=== PATIENT | female | born 1985 | race Caucasian/White ===

== ENCOUNTER 2021-01-02 19:01 | Inpatient (IN) | payer MEDICAID ==
[2021-01-02] MEDS ORDERED: TERBUTALINE 1 MG/ML VIAL SQ PRN (19:55)
[2021-01-02] MEDS ORDERED: LIDOCAINE 0.5% (PF) 5 MG/ML (50 ML SDV) SQ PRN (19:55)
[2021-01-02] MEDS ORDERED: CARBOPROST TROMETHAMINE 250 MCG/ML 1 ML AMP IM PRN (19:55)
[2021-01-02] MEDS ORDERED: OXYTOCIN 10 UNIT/ML 1 ML VIAL IM PRN (19:55)
[2021-01-02] MEDS ORDERED: METHYLERGONOVINE 0.2 MG/ML 1 ML AMP IM PRN (19:55)
[2021-01-02] MEDS ORDERED: OXYTOCIN 30 UNITS/500 ML NS 30 UNIT in SALINE 1 500ML.BAG IV SCH ×2 (20:00→21:00)
[2021-01-02] MEDS ORDERED: LACTATED RINGERS 1,000 ML IV SCH (20:00)
[2021-01-02 20:07] LABS: Basophils % (A) 0 %; Eosinophils # (A) 0.2 k/uL (0-0.7); Eosinophils % (A) 1 %; HCT 47.5 % (34.0-46.0); Lymphocytes # (A) 2.6 k/uL (1.0-4.8); Lymphocytes % (A) 14 %; MCH 28.7 pg (25.0-35.0); MCHC 33.7 g/dL (31.0-37.0); MCV 85.1 fL (80.0-100.0); Mean Platelet Volume 8.7; Monocytes # (A) 0.7 k/uL (0-1.0); Monocytes % (A) 4 %; Neutrophils # (A) 14.3 k/uL (1.3-7.7); Neutrophils % (A) 80 %; Platelet Count 199 k/uL (150-450); RBC 5.58 m/uL (3.80-5.40); RDW 13.9 % (11.5-15.5)
--- NOTE | 2021-01-02 20:45 | P.HPOB ---
History of Present Illness H&P Date: 01/02/21 Chief Complaint: labor at 40-3/7 weeks this is a 35-year-old 3 para 1011 woman who presented at 40-3/7 weeks in active labor. She reported onset of contractions approximately 2 hours prior to presentation. She denied vaginal bleeding or leakage of fluids. Her has been essentially uncomplicated. She is a smoker and was being followed for a small for gestational age infant. Upon initial evaluation in labor and delivery triage she was 3 cm dilated. She progressed over half an hour to 4 cm dilated and was very uncomfortable with regular uterine contractions she was therefore admitted. Laboratory data: Group B strep negative, blood type A positive, antibody screen negative, rubella immune, VDRL nonreactive, hepatitis B surface antigen negative, HIV negative, gonorrhea and clinic cultures negative Obstetrical history: 2007 term vaginal delivery. 2001 voluntary termination. Review of Systems All systems: negative Past Medical History Past Medical History: No Reported History History of Any Multi-Drug Resistant Organisms: None Reported Past Surgical History: Orthopedic Surgery Additional Past Surgical History / Comment(s): Knee surgery on R knee Past Anesthesia/Blood Transfusion Reactions: No Reported Reaction Smoking Status: Former smoker Past Alcohol Use History: None Reported Past Drug Use History: None Reported - Past Family History Mother Family Medical History: No Reported History Medications and Allergies Home Medications Medication Instructions Recorded Confirmed Type Aspirin 1 tab PO DAILY 01/02/21 01/02/21 History Pnv No.95/Ferrous Fum/Folic AC 1 tab PO DAILY 01/02/21 01/02/21 History [ Multivitamin Tablet] Allergies Allergy/AdvReac Type Severity Reaction Status Date / Time No Known Allergies Allergy Verified 01/02/21 19:04 Exam Vital Signs Temp Pulse Resp BP Pulse Ox 01/02/21 19:55 96.9 F L 88 16 134/88 100 01/02/21 19:03 96.9 F L 88 16 134/88 Intake and Output 01/02/21 01/02/21 01/02/21 06:59 14:59 22:59 Other: Weight 81.647 kg upon my initial evaluation the patient is very uncomfortable with regular painful contractions. She is involuntarily pushing. She is 9+ centimeters dilated. I do not feel on membranes. She has moderate amount of bloody show. heart tones are category 2 with intermittent tracing and evidence of probable variable heart rate decelerations. Results Result Diagrams: 01/02/21 19:55 Abnormal Lab Results - Last 24 Hours (Table) 01/02/21 Range/Units 19:55 WBC 18.0 H (3.8-10.6) k/uL RBC 5.58 H (3.80-5.40) m/uL Hct 47.5 H (34.0-46.0) % Neutrophils # 14.3 H (1.3-7.7) k/uL Assessment and Plan (1) Advanced maternal age (AMA) in Current Visit: Yes Status: Acute Code(s): QFP8868 - SNOMED Code(s): 4164 06053 (2) Spontaneous onset of labor Current Visit: Yes Status: Acute Code(s): RZZ2759 - SNOMED Code(s): 68509479 (3) Post-dates Current Visit: Yes Status: Acute Code(s): O48.0 - POST-TERM SNOMED Code(s): 21731094 (4) Tobacco abuse Current Visit: Yes Status: Acute Code(s): Z72.0 - TOBACCO USE SNOMED Code(s): 650178517 Plan: 35-year-old 3 para 1011 woman who is in advanced active labor at 40-3/7 weeks gestation. Anticipate normal spontaneous vaginal delivery
[2021-01-02] MEDS ORDERED: diphenhydrAMINE 50 MG CAP PO PRN (20:48)
[2021-01-02] MEDS ORDERED: ZOLPIDEM 5 MG TAB PO PRN (20:48)
[2021-01-02] MEDS ORDERED: LANOLIN CREAM 5 GM TUBE TOPICAL PRN (20:48)
[2021-01-02] MEDS ORDERED: diphenhydrAMINE 50 MG/ML 1 ML VIAL IVP PRN ×2 (20:48)
[2021-01-02] MEDS ORDERED: SIMETHICONE 80 MG CHEWABLE PO PRN (20:48)
[2021-01-02] MEDS ORDERED: diphenhydrAMINE 25 MG CAP PO PRN (20:48)
[2021-01-02] MEDS ORDERED: HYDROCORTISONE 2.5% RECTAL CREAM 30 GM TUBE RECTAL PRN (20:48)
[2021-01-02] MEDS ORDERED: BENZOCAINE/MENTHOL SPRAY 1 GM/SPRAY AEROSOL TOPICAL PRN (20:48)
[2021-01-02] MEDS ORDERED: ACETAMINOPHEN TAB 325 MG TAB PO PRN (20:48)
--- NOTE | 2021-01-02 20:48 | P.PROBDLV ---
Vaginal Delivery Note - . Vaginal Delivery Note: findings: Female in the left occiput anterior position with Apgars of 9 at 1 minute and 10 at 5 minutes. weight 5 lbs. 9 oz., 2580 g. Nuchal cord 1. Terminal meconium. EBL approximately 100 mL's. No perineal lacerations. Delivery summary: This is a 35-year-old 3 para 1011 woman who presented in spontaneous active labor at 40-3/7 weeks gestation. Upon initial presentation to labor and delivery triage she was 3 cm dilated and over the course of 30 minutes she progressed to 4 cm dilated and was actively laboring and uncomfortable. She was admitted to labor and delivery room at which time she was found to be 9+ centimeters dilated and involuntarily pushing. There is no evidence of intact membranes upon my initial evaluation. With uncontrolled maternal effort she did push to . She was repositioned and prepped rapidly in the modified Vincent position. With additional maternal effort 1 the 's head delivered from the left occiput anterior position. The anterior followed by the posterior shoulders were delivered rapidly onto the field. The infant was then placed on the maternal abdomen and the nose and mouth were bulb suctioned. The cord was clamped and cut and the infant was taken to the warmer. Apgars were 9 at 1 minute and 10 at 5 minutes. Weight was 5 lbs. 9 oz., 2580 g. An intact three-vessel cord placenta was expressed after approximately 5 minute third stage of labor. It appeared small and calcified. The perineum, vagina and cervix were then inspected and no lacerations were noted. The uterus was massaged and noted to be at the level of the umbilicus and firm. EBL was approximately 100 mL's. Patient received Pitocin following the third stage of labor. Both mother and were doing well post delivery in the room.
[2021-01-03 07:58] LABS: Basophils % (A) 0 %; Eosinophils # (A) 0.1 k/uL (0-0.7); Eosinophils % (A) 0 %; HCT 39.2 % (34.0-46.0); HGB 13.7 gm/dL (11.4-16.0); Lymphocytes # (A) 2.1 k/uL (1.0-4.8); Lymphocytes % (A) 10 %; MCH 30.6 pg (25.0-35.0); MCV 87.4 fL (80.0-100.0); Mean Platelet Volume 8.3; Monocytes # (A) 0.9 k/uL (0-1.0); Monocytes % (A) 4 %; Neutrophils # (A) 17.5 k/uL (1.3-7.7); Neutrophils % (A) 84 %; Platelet Count 169 k/uL (150-450); RBC 4.49 m/uL (3.80-5.40); RDW 14.7 % (11.5-15.5); WBC 20.9 k/uL (3.8-10.6)
[2021-01-03] MEDS: IBUPROFEN 600 MG TAB PO PRN ×2 (08:11→20:00)
[2021-01-03] MEDS: SENNOSIDES-DOCUSATE SODIUM 1 EACH TAB PO SCH ×2 (08:12→20:00)
[2021-01-03 08:20] VITALS: RESP 18
--- NOTE | 2021-01-03 11:22 | P.DS ---
Providers Date of admission: 01/02/21 19:47 Expected date of discharge: 01/03/21 Attending physician: Capri Cottrell Primary care physician: Stated None - Discharge Diagnosis(es) (1) Advanced maternal age (AMA) in Current Visit: Yes Status: Acute (2) Spontaneous onset of labor Current Visit: Yes Status: Acute (3) Post-dates Current Visit: Yes Status: Acute (4) Tobacco abuse Current Visit: Yes Status: Acute (5) Normal spontaneous vaginal delivery Current Visit: Yes Status: Acute Hospital Course: This is a 35-year-old 3 now para 2012 woman who presented at 40-3/7 weeks gestation in active labor. Following admission she had a very precipitous labor and delivery of a liveborn female infant weighing 5 lbs. 9 oz. with Apgars of 9 at 1 minute and 10 at 5 minutes. Please see the delivery summary for details. Her course was unremarkable. By ulcerative day #1 she was ambulating and voiding without difficulty. She is breast-feeding successfully. Her lochia was minimal and she had no pain. Her vital signs were stable. She was afebrile. She was therefore discharged home on day #1 with routine instructions for care and follow-up. Procedures: Normal spontaneous vaginal delivery Patient Condition at Discharge: Good Plan - Discharge Summary New Discharge Prescriptions: No Action Pnv No.95/Ferrous Fum/Folic AC [ Multivitamin Tablet] 1 tab PO DAILY Aspirin 1 tab PO DAILY Discharge Medication List Aspirin 1 tab PO DAILY 01/02/21 [History] Pnv No.95/Ferrous Fum/Folic AC [ Multivitamin Tablet] 1 tab PO DAILY 01/02/21 [History] Follow up Appointment(s)/Referral(s): Capri Cottrell MD [STAFF PHYSICIAN] - 6 Weeks Activity/Diet/Wound Care/Special Instructions: Follow-up in the office in 6 weeks . Call with any concerning signs or symptoms including heavy vaginal bleeding, severe abdominal pain, fever greater than 101, swelling or redness of the lower extremities, foul vaginal discharge, or signs of depression. Nothing in the vagina for 6 weeks after delivery, specifically no intercourse. May use [id number] ibuprofen and/or Tylenol as needed for pain. Discharge Disposition: HOME SELF-CARE
[2021-01-03 15:15] VITALS: BP 100/68; PULSE 73; TEMP 98.5
== END 2021-01-03 21:50 | disposition home or self-care (01) | DRG 807 ==
LOC: FBPOP 19:01 → 4FBP 19:47
PROVIDERS: ADMIT Obstetrics & Gynecology; ATTEND Obstetrics & Gynecology
PROC: 10E0XZZ Delivery of Products of Conception, External Approach (ICD-10-PCS; principal; 2021-01-02)
DX: O48.0 Post-term pregnancy (principal); Z37.0 Single live birth; O69.81X0 Labor and delivery complicated by cord around neck, without compression, not applicable or unspecified; O77.0 Labor and delivery complicated by meconium in amniotic fluid; O99.334 Smoking (tobacco) complicating childbirth; F17.210 Nicotine dependence, cigarettes, uncomplicated; O36.5930 Maternal care for other known or suspected poor fetal growth, third trimester, not applicable or unspecified; Z3A.40 40 weeks gestation of pregnancy; Z79.82 Long term (current) use of aspirin
CPT/HCPCS: 59025; 85025; 86850; 86900; 86901; 99213

== ENCOUNTER → 2022-12-08 | Outpatient (CLI) | payer MEDICAID ==
--- NOTE | 2022-12-08 09:11 | MM ---
Reason for Exam: Screening (asymptomatic). Baseline mammogram. Patient History: Menarche at age 12. First Full-Term at age 20. Premenopausal. Maternal aunt had breast cancer at or over age 50. Last menstrual period: 11/16/2022 Risk Values: Fiorella 5 year model risk: 0.4%. NCI Lifetime model risk: 8.3%. Prior Study Comparison: Patient's first Mammogram. Tissue Density: There are scattered fibroglandular densities. Findings: Analyzed By CAD. There is no suspicious group of microcalcifications or new suspicious mass. Overall Assessment: Negative, BI-RAD 1 Management: Screening Mammogram of both breasts in [address] [facility] will attempt to contact patient to return for supplemental views and ultrasound if indicated. Patient should continue monthly self-breast exams. A clinical breast exam by your physician is recommended on an annual basis. This exam should not preclude additional follow-up of suspicious palpable abnormalities. Note on Fiorella scores and lifetime risk: 1. A Fiorella score greater than 3% is considered moderate risk. If this is the case, consider specialist referral to assess eligibility for a risk reducing agent. 2. If overall lifetime risk for the development of breast cancer is 20% or higher, the patient may qualify for future screening with alternating mammogram and breast MRI. Electronically signed and approved by: Carlos Max DO
== END | disposition home or self-care (01) ==
LOC: RADMAMWWP 07:38
PROVIDERS: ATTEND Obstetrics & Gynecology
DX: Z12.31 Encounter for screening mammogram for malignant neoplasm of breast (principal); Z80.3 Family history of malignant neoplasm of breast
CPT/HCPCS: 77063; 77067

== ENCOUNTER → 2024-02-21 | Outpatient (CLI) | payer MEDICAID ==
--- NOTE | 2024-02-21 08:29 | MM ---
Reason for Exam: Screening (asymptomatic). Last mammogram was performed 1 year(s) and 2 month(s) ago. Patient History: Menarche at age 12. First Full-Term at age 20. Premenopausal. Maternal aunt had breast cancer at or over age 50. Last menstrual period: 02/08/2024 Risk Values: Fiorella 5 year model risk: 0.5%. NCI Lifetime model risk: 8.3%. Prior Study Comparison: 12/08/2022 Bilateral MG 3D screening mammo w/cad, [facility]. Tissue Density: There are scattered areas of fibroglandular density. Findings: Analyzed By CAD. There is no suspicious new group of microcalcifications or new suspicious mass in either breast. Overall Assessment: Negative, BI-RAD 1 Management: Screening Mammogram of both breasts in 1 year. . Patient should continue monthly self-breast exams. A clinical breast exam by your physician is recommended on an annual basis. This exam should not preclude additional follow-up of suspicious palpable abnormalities. Note on Fiorella scores and lifetime risk: 1. A Fiorella score greater than 3% is considered moderate risk. If this is the case, consider specialist referral to assess eligibility for a risk reducing agent. 2. If overall lifetime risk for the development of breast cancer is 20% or higher, the patient may qualify for future screening with alternating mammogram and breast MRI. [facility], , 02/21/2024 8:26 AM. Electronically signed and approved by: Michele Bartholomew M.D.
== END | disposition home or self-care (01) ==
LOC: RADMAMWWP 06:59
PROVIDERS: ATTEND Obstetrics & Gynecology
DX: Z12.31 Encounter for screening mammogram for malignant neoplasm of breast (principal); Z80.3 Family history of malignant neoplasm of breast; R92.323 Mammographic fibroglandular density, bilateral breasts
CPT/HCPCS: 77063; 77067

== ENCOUNTER → 2024-04-25 | Outpatient (CLI) | payer MEDICAID ==
--- NOTE | 2024-04-25 23:19 | XR ---
EXAMINATION TYPE: XR ankle complete RT DATE OF EXAM: 04/25/2024 4:57 PM COMPARISON: None CLINICAL INDICATION: Female, 38 years old with history of [id number] RT ANKLE PAIN; [facility], pain TECHNIQUE: XR ankle complete RT; frontal, lateral and oblique projections. FINDINGS: Acute oblique fracture of the distal fibula with extension to the level of the tibiotalar joint space . Mild displacement up 2 mm. No additional fractures. Mild soft tissue swelling throughout the foot. IMPRESSION: Acute fracture of the lateral malleolus/distal fibula with extension into the level of the tibiotalar joint space [facility], , 04/25/2024 11:17 PM
== END | disposition home or self-care (01) ==
LOC: RADXRYALE 16:43
PROVIDERS: ATTEND Physician Assistant
DX: S82.61XA Displaced fracture of lateral malleolus of right fibula, initial encounter for closed fracture (principal); X58.XXXA Exposure to other specified factors, initial encounter